=== PATIENT | female | born 1955 | race Caucasian/White ===

== ENCOUNTER 2020-01-20 08:15 | Emergency (ER) | payer OTHER ==
[~2020-01-20] VITALS: Ht 162.6 cm; Wt 81.6 kg
[2020-01-20 08:15] VITALS: BP 168/86; Ht 162.6 cm; Wt 81.6 kg
== END 2020-01-20 09:40 | disposition home or self-care (01) ==
LOC: ED 08:15
DX: R43.8 Other disturbances of smell and taste (principal); M79.10 Myalgia, unspecified site; J02.9 Acute pharyngitis, unspecified; Z20.828 Contact with and (suspected) exposure to other viral communicable diseases
CPT/HCPCS: U0003-CS